=== PATIENT | male | born 1955 | race American Indian/Alaskan Native ===

== ENCOUNTER 2021-10-23 20:48 | Inpatient (IN) | payer OTHER, MEDICARE ==
[2021-10-23] MEDS ORDERED: ACETAMINOPHEN 500 MG TAB PO ONE (22:52)
[2021-10-23] MEDS ORDERED: SODIUM CHLORIDE 0.9% 1000 ML 1,000 ML IV ONE (22:52)
--- NOTE | 2021-10-23 22:58 | Emergency Department Report ---
ED Fever HPI - General Chief Complaint: High BP Stated Complaint: HYPERGLYCEMIA PUI?: Yes Time Seen by Provider: 10/23/21 22:30 Source: patient, family Exam Limitations: physical impairment - History of Present Illness Initial Comments: 66-year-old male with multiple medical comorbidities brought in by EMS at the request of his for evaluation of high blood sugar and high blood pressure as well as fever. Patient's reports that the patient has not been feeling well for the past day. She states she noticed him shaking and not appearing well over the past day. Patient reports burning and pain with urination over the past 4 to 5 days. He denies any abdominal pain, nausea vomiting fevers or chills. He states he is vaccinated against COVID but has not received booster shots. He denies any cough or upper respiratory tract infection symptoms, no chest pain and no shortness of breath. Patient did not receive any antipyretics prior to arrival. Pain currently 0-10. Timing/Duration: just prior to arrival Fever Severity/Quality: subjective Fever Therapy RECOVERY AGENT: none Associated Symptoms: weakness ED Review of Systems ROS: Stated complaint: HYPERGLYCEMIA Other details as noted in HPI Comment: All other systems reviewed and negative Constitutional: chills, diaphoresis, fever, malaise, weakness Eyes: denies: eye pain, eye discharge, vision change ENT: denies: ear pain, throat pain, dental pain, hearing loss, epistaxis Respiratory: no symptoms reported, see HPI Cardiovascular: denies: chest pain, palpitations, dyspnea on exertion, orthopnea, edema, syncope, paroxysmal nocturnal dyspnea, other Endocrine: denies: no symptoms reported Gastrointestinal: denies: abdominal pain, nausea, vomiting, diarrhea, constipation, hematemesis, melena, hematochezia Genitourinary: as per HPI, urgency, dysuria, frequency. denies: hematuria, discharge, testicular pain Musculoskeletal: as per HPI, myalgia. denies: back pain, joint swelling, arthralgia Skin: denies: as per HPI, rash, lesions, change in color, change in hair/nails, pruritus Neurological: denies: as per HPI, headache, weakness, numbness, paresthesias, confusion, abnormal gait, vertigo Psychiatric: denies: anxiety, depression, auditory hallucinations, visual hallucinations, homicidal thoughts Hematological/Lymphatic: denies: easy bleeding, easy bruising, swollen glands, other ED Past Medical Hx - Past Medical History Hx Hypertension: Yes Hx CVA: Yes Additional medical history: HIGH CHOLESTEROL - Family History Family history: no significant - Social History Smoking Status: Unknown if ever smoked Substance Use Type: None - Medications Home Medications: Home Medications Medication Instructions Recorded Confirmed Last Taken Type Aspirin [Aspirin BABY CHEW TAB] 81 mg PO DAILY #30 tab.chew 08/15/13 Unknown Rx Atenolol [Tenormin] 100 mg PO DAILY #30 tablet 08/15/13 Unknown Rx Lisinopril/Hydrochlorothiazide 1 each PO QDAY #30 tablet 08/15/13 Unknown Rx [Zestoretic 10-12.5 mg] Lovastatin [Mevacor] 20 mg PO DAILY #30 tablet 08/15/13 Unknown Rx amLODIPine [Norvasc] 10 mg PO DAILY 08/15/13 08/15/13 Unknown History lisinopriL [Zestril TAB] 10 mg PO DAILY 08/15/13 08/15/13 Unknown History ED Physical Exam - General Limitations: No Limitations General appearance: alert, in no apparent distress - Head Head exam: Present: atraumatic, normocephalic, normal inspection - Eye Eye exam: Present: normal appearance, PERRL, EOMI Pupils: Present: normal accommodation - ENT ENT exam: Present: normal exam, mucous membranes moist, normal external ear exam - Neck Neck exam: Present: normal inspection, full ROM. Absent: tenderness, meningismus, lymphadenopathy, thyromegaly - Respiratory Respiratory exam: Present: normal lung sounds bilaterally, wheezes. Absent: respiratory distress, rales, rhonchi, stridor, chest wall tenderness, accessory muscle use, decreased breath sounds, prolonged expiratory - Cardiovascular Cardiovascular Exam: Present: regular rate, normal rhythm, normal heart sounds - GI/Abdominal GI/Abdominal exam: Present: soft, normal bowel sounds. Absent: hyperactive bowel sounds, hypoactive bowel sounds, organomegaly, mass, bruit, pulsatile mass, hernia - Extremities Exam Extremities exam: Present: normal inspection, full ROM, other (dry skin noted to b/l LE with skin flaking; no sloughing) - Back Exam Back exam: Present: normal inspection, full ROM. Absent: tenderness, CVA tenderness (R), CVA tenderness (L), muscle spasm, paraspinal tenderness, vertebral tenderness, rash noted - Neurological Exam Neurological exam: Present: oriented X3, CN II-XII intact. Absent: motor sensory deficit - Psychiatric Psychiatric exam: Present: normal affect, normal mood. Absent: depressed, anxious, flat affect, manic, homicidal ideation, suicidal ideation - Skin Skin exam: Present: warm, dry, intact, normal color, other (mild localized erythema to bottom of pt's R foot ) ED Course Vital Signs 10/23/21 10/23/21 10/23/21 21:16 21:19 22:48 Temperature 100.7 F H Pulse Rate 95 H 79 Respiratory 16 16 Rate Blood Pressure Blood Pressure 168/56 174/80 [Left] O2 Sat by Pulse 95 99 Oximetry 10/23/21 10/23/21 10/23/21 23:22 23:31 23:45 Temperature Pulse Rate 88 87 Respiratory 19 24 29 H Rate Blood Pressure 164/71 164/71 Blood Pressure [Left] O2 Sat by Pulse 96 97 Oximetry 10/24/21 10/24/21 10/24/21 00:01 00:15 00:31 Temperature Pulse Rate 89 89 89 Respiratory 29 H 28 H 21 Rate Blood Pressure 159/69 159/69 150/80 Blood Pressure [Left] O2 Sat by Pulse 97 91 94 Oximetry 10/24/21 10/24/21 10/24/21 00:45 01:01 01:15 Temperature Pulse Rate 95 H 91 H 88 Respiratory 17 18 16 Rate Blood Pressure 150/80 158/77 158/77 Blood Pressure [Left] O2 Sat by Pulse 96 97 97 Oximetry 10/24/21 10/24/21 10/24/21 01:31 01:45 02:01 Temperature Pulse Rate 85 84 83 Respiratory 27 H 26 H 19 Rate Blood Pressure 152/62 152/62 149/64 Blood Pressure [Left] O2 Sat by Pulse 97 97 95 Oximetry 10/24/21 10/24/21 10/24/21 02:15 02:31 02:45 Temperature Pulse Rate 84 81 79 Respiratory 16 12 25 H Rate Blood Pressure 149/64 157/70 157/70 Blood Pressure [Left] O2 Sat by Pulse 99 98 96 Oximetry 10/24/21 10/24/21 10/24/21 03:00 03:15 03:31 Temperature Pulse Rate 76 81 73 Respiratory 27 H 22 18 Rate Blood Pressure 157/70 153/70 155/74 Blood Pressure [Left] O2 Sat by Pulse 98 98 97 Oximetry 10/24/21 10/24/21 10/24/21 03:45 04:01 04:15 Temperature Pulse Rate 74 75 75 Respiratory 21 25 H 23 Rate Blood Pressure 155/74 155/74 155/74 Blood Pressure [Left] O2 Sat by Pulse 98 100 98 Oximetry 10/24/21 04:31 Temperature Pulse Rate 77 Respiratory 23 Rate Blood Pressure 159/71 Blood Pressure [Left] O2 Sat by Pulse 98 Oximetry ED Medical Decision Making - Lab Data Result diagrams: 10/23/21 23:04 10/23/21 23:04 - Radiology Data Radiology results: report reviewed - Medical Decision Making 66-year-old male with multi medical comorbidities brought in by his for evaluation of fever and burning and pain with urination for the past 3 days. Patient was found today to have sepsis secondary to urinary tract infection. Rocephin and acetaminophen given. Patient has been accepted by to the hospital service for admission and further management. Critical care attestation.: If time is entered above; I have spent that time in minutes in the direct care of this critically ill patient, excluding procedure time. ED Disposition Clinical Impression: UTI (urinary tract infection), Sepsis Disposition: ADMITTED INPATIENT Is pt being admited?: Yes Does the pt Need Aspirin: No Condition: Stable
[2021-10-23 23:25] LABS: Basophils % (Auto) 0.3 % (0.0-1.8); Eosinophils # (Auto) 0.1 K/mm3 (0.0-0.4); Eosinophils % (Auto) 0.8 % (0.0-4.3); Hematocrit 27.1 % (35.5-45.6); Lymphocytes # (Auto) 0.8 K/mm3 (1.2-5.4); Lymphocytes % (Auto) 11.7 % (13.4-35.0); Mean Corpuscular HGB Conc 33 % (32-34); Mean Corpuscular Volume 84 fl (84-94); Monocytes # (Auto) 0.3 K/mm3 (0.0-0.8); Monocytes % (Auto) 4.8 % (0.0-7.3); Platelet Count 189 K/mm3 (140-440); Red Blood Count 3.24 M/mm3 (3.65-5.03); Red Cell Distribution Width 16.5 % (13.2-15.2)
[2021-10-23 23:34] LABS: Albumin 3.5 g/dL (3.9-5); BUN/Creatinine Ratio 10; Blood Urea Nitrogen 11 mg/dL (9-20); Calcium 8.7 mg/dL (8.4-10.2); Hemolysis Index 0
[2021-10-23 23:38] LABS: Alanine Aminotransferase < 5 units/L (7-56)
--- NOTE | 2021-10-24 02:13 | XRay Report ---
CHEST 1 VIEW INDICATION / CLINICAL INFORMATION: fever, weakness. COMPARISON: Chest x-ray 08/15/2013 FINDINGS: SUPPORT DEVICES: None. HEART / MEDIASTINUM: Heart size is within normal limits. Mediastinal contour demonstrates no signific ant abnormality. LUNGS / PLEURA: No significant pulmonary abnormality. BONES: No significant osseous abnormality. ADDITIONAL FINDINGS: No significant additional findings. IMPRESSION: 1. No active cardiopulmonary disease. Signer Name: Raghavendra Mccabe II, MD Signed: 10/24/2021 2:09 AM Workstation Name: [id number]
[2021-10-24 03:15] LABS: Bilirubin,Urine Negative (Negative); Blood,Urine Negative (Negative); Color,Urine Yellow (Yellow); Protein,Urine <15 mg/dL mg/dL (Negative)
[2021-10-24] MEDS ORDERED: cefTRIAXone/NS 1 GM/50 ML 1 GM/50 ML BAG IV ONE (04:13)
[2021-10-24] MEDS ORDERED: MORPHINE 2 MG/1 ML INJ IV PRN (05:42)
[2021-10-24] MEDS ORDERED: ONDANSETRON 4 MG/2 ML INJ IV PRN (05:42)
[2021-10-24] MEDS ORDERED: MAGNESIUM HYDROXIDE (MOM) ORAL LIQD UDC PO PRN (05:42)
[2021-10-24] MEDS ORDERED: MORPHINE 4 MG/1 ML INJ IV PRN (05:42)
[2021-10-24] MEDS ORDERED: ACETAMINOPHEN 325 MG TAB PO PRN (05:42)
--- NOTE | 2021-10-24 05:49 | History and Physical Report ---
History of Present Illness Date of examination: 10/24/21 Date of admission: 10/24/2021 Chief complaint: Fever History of present illness: 66-year-old [place]er male with known history of hyperlipidemia, hypertension and CVA presents to the emergency room via EMS today for evaluation of elevated blood pressure and blood glucose at home. Patient has also been having fever and had noticed that patient was having what appeared to be rigors and therefore called EMS. Patient also indicates that he has been having some dysuria over the past 4 to 5 days. He denies any nausea or vomiting, no chest pain or shortness of breath no headache or dizziness and no diaphoresis. Patient denies any sick contacts and no recent travel. Upon arrival in the emergency room, patient was back to his baseline. Work-up in the emergency room today, lab reveals hemoglobin of 9 and hematocrit of 27.1. Urinalysis reveals UTI. He has been started on IV fluid and empiric IV antibiotics. Past History Past Medical History: hypertension, hyperlipidemia, stroke Past Surgical History: No surgical history Social history: no significant social history Family history: no significant family history Medications and Allergies Allergies Allergy/AdvReac Type Severity Reaction Status Date / Time No Known Allergies Allergy Unverified 08/15/13 02:53 Home Medications Medication Instructions Recorded Confirmed Last Taken Type Aspirin [Aspirin BABY CHEW TAB] 81 mg PO DAILY #30 tab.chew 08/15/13 Unknown Rx Atenolol [Tenormin] 100 mg PO DAILY #30 tablet 08/15/13 Unknown Rx Lisinopril/Hydrochlorothiazide 1 each PO QDAY #30 tablet 08/15/13 Unknown Rx [Zestoretic 10-12.5 mg] Lovastatin [Mevacor] 20 mg PO DAILY #30 tablet 08/15/13 Unknown Rx amLODIPine [Norvasc] 10 mg PO DAILY 08/15/13 08/15/13 Unknown History lisinopriL [Zestril TAB] 10 mg PO DAILY 08/15/13 08/15/13 Unknown History Review of Systems Constitutional: fever, no chills Ears, nose, mouth and throat: no nasal congestion, no sore throat Cardiovascular: no chest pain, no palpitations Respiratory: no cough, no shortness of breath Gastrointestinal: no abdominal pain, no nausea, no vomiting, no diarrhea Genitourinary Male: no dysuria, no hematuria, no flank pain Musculoskeletal: no neck pain, no low back pain Integumentary: no rash, no pruritis Neurological: no headaches, no confusion Psychiatric: no anxiety, no depression Endocrine: no polyphagia, no polydipsia, no polyuria Exam - Constitutional Vitals: Temp Pulse Resp BP Pulse Ox 100.7 F H 77 23 159/71 98 10/23/21 21:19 10/24/21 04:31 10/24/21 04:31 10/24/21 04:31 10/24/21 04:31 General appearance: Present: no acute distress, well-nourished - EENT Eyes: Present: PERRL, EOM intact. Absent: scleral icterus ENT: hearing intact, clear oral mucosa, dentition normal - Neck Neck: Present: supple, normal ROM - Respiratory Respiratory effort: normal Respiratory: bilateral: CTA - Cardiovascular Rhythm: regular Heart Sounds: Present: S1 & S2. Absent: gallop, systolic murmur, diastolic murmur, rub, click - Extremities Extremities: no ischemia, pulses intact, pulses symmetrical, No edema, normal temperature, normal color, Full ROM Peripheral Pulses: within normal limits - Abdominal General gastrointestinal: Present: soft, non-tender, non-distended, normal bowel sounds. Absent: mass - Integumentary Integumentary: Present: clear, warm, dry, normal turgor. Absent: rash - Musculoskeletal Musculoskeletal: strength equal bilaterally - Psychiatric Psychiatric: appropriate mood/affect, intact judgment & insight, memory intact, cooperative - Neurologic Neurologic: CNII-XII intact, no focal deficits, moves all extremities Results - Labs CBC & Chem 7: 10/23/21 23:04 10/23/21 23:04 Labs: Abnormal lab results 10/23/21 10/23/21 10/24/21 Range/Units 23:04 23:04 02:56 RBC 3.24 L (3.65-5.03) M/mm3 Hgb 9.0 L (11.8-15.2) gm/dl Hct 27.1 L (35.5-45.6) % RDW 16.5 H (13.2-15.2) % Lymph % (Auto) 11.7 L (13.4-35.0) % Lymph # (Auto) 0.8 L (1.2-5.4) K/mm3 Seg Neutrophils % 82.4 H (40.0-70.0) % ALT < 5 L (7-56) units/L Albumin 3.5 L (3.9-5) g/dL Urine WBC (Auto) 22.0 H (0.0-6.0) /HPF Assessment and Plan Assessment: 1. UTI 2. Hypertension 3. History of CVA Plan: 1. Patient commenced on IV fluid and empiric IV antibiotics. 2. We will await culture results. 3. We will resume routine home medications once reconciled. DVT Prophylaxis: Subcutaneous heparin Code Status: Full Code.
[2021-10-24] MEDS: cefTRIAXone/NS 1 GM/50 ML 1 GM/50 ML BAG IV SCH (11:07)
[2021-10-24] MEDS: SODIUM CHLORIDE 0.9% 1000 ML 1,000 ML IV SCH ×2 (11:08→23:48)
--- NOTE | 2021-10-24 13:22 | Event Note ---
Date: 10/24/21 Patient seen and examined at bedside. Has history of CVA with residual right- sided weakness. Patient reports right gluteal and leg pain prior to admission, but unable to characterize and pinpoint exactly. He has had no urinary or fecal incontinence, numbness tingling leg, previous back injury. Currently treating for UTI. Urine culture and blood cultures pending. Patient with T-max of 100.7, will continue to monitor.
[2021-10-24] MEDS ORDERED: NON-FORMULARY EACH (Atenolol [Tenormin] 100 MG Tablet) PO SCH (13:30)
[2021-10-24] MEDS: HEPARIN 5,000 UNIT/1 ML VIAL SUB-Q SCH ×2 (13:37→23:45)
--- NOTE | 2021-10-24 15:45 | XRay Report ---
SINGLE VIEW RIGHT HIP SINGLE VIEW RIGHT FEMUR. INDICATION: hip pain. Right hip pain and right thigh pain COMPARISON: No relevant prior imaging study available. FINDINGS: Right hip: There are advanced osteoarthrosis changes at the hips. 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 No acute fracture is seen. Right femur: No acute fracture is seen. Osteoarthrosis changes are noted at the right knee. No soft t issue swelling is identified. IMPRESSION: 1. No acute findings. Signer Name: Miller Roldan MD Signed: 10/24/2021 3:40 PM Workstation Name: [id number]
[2021-10-24] MEDS: LISINOPRIL 10 MG TAB PO SCH (16:29)
[2021-10-24] MEDS: ASPIRIN 81 MG TAB CHEW PO SCH (16:30)
[2021-10-24] MEDS: atenoloL 50 MG TAB PO SCH (16:30)
[2021-10-24] MEDS: amLODIPine 10 MG TAB PO SCH (16:30)
[2021-10-25 05:52] LABS: Basophils % (Auto) 0.4 % (0.0-1.8); Eosinophils % (Auto) 0.5 % (0.0-4.3); Hematocrit 33.5 % (35.5-45.6); Hemoglobin 10.7 gm/dl (11.8-15.2); Lymphocytes # (Auto) 1.1 K/mm3 (1.2-5.4); Lymphocytes % (Auto) 17.4 % (13.4-35.0); Mean Corpuscular HGB Conc 32 % (32-34); Mean Corpuscular Volume 84 fl (84-94); Monocytes # (Auto) 0.3 K/mm3 (0.0-0.8); Monocytes % (Auto) 5.8 % (0.0-7.3); Platelet Count 225 K/mm3 (140-440); Red Blood Count 3.99 M/mm3 (3.65-5.03); Red Cell Distribution Width 16.2 % (13.2-15.2)
[2021-10-25 06:09] LABS: BUN/Creatinine Ratio 12; Blood Urea Nitrogen 14 mg/dL (9-20); Hemolysis Index 1
[2021-10-25] MEDS: HEPARIN 5,000 UNIT/1 ML VIAL SUB-Q SCH ×3 (06:25→21:15)
[2021-10-25] MEDS: atenoloL 50 MG TAB PO SCH (09:32)
[2021-10-25] MEDS: cefTRIAXone/NS 1 GM/50 ML 1 GM/50 ML BAG IV SCH (09:32)
[2021-10-25] MEDS: ASPIRIN 81 MG TAB CHEW PO SCH (09:32)
[2021-10-25] MEDS: amLODIPine 10 MG TAB PO SCH (09:33)
[2021-10-25] MEDS: LISINOPRIL 10 MG TAB PO SCH (09:33)
--- NOTE | 2021-10-25 13:27 | Progress Note ---
Assessment and Plan Assessment and plan: #Sepsis-improving #Acute cystitis without hematuria -Patient currently defervescing, clinical improvement -Chest x-ray negative for acute findings; Coronavirus PCR negative -UA suggestive of cystitis urine culture pending -Continue Rocephin -Blood culture no growth to date x24 hours #Hypertension -Uncontrolled, questionable patient compliance -We will continue amlodipine, atenolol and lisinopril at home doses -Goal SBP less than 160 while inpatient -We will titrate medications as needed #History of CVA -Continue ASA plus statin #Advanced care planning -Disease education conducted, care plan discussed, diagnoses discussed, prognosis discussed, and patient acknowledges understanding with care plan -Time: +30 min History Interval history: No acute events overnight. Patient reports improvement in his symptoms and in right lower extremity pain. He reports having this pain for at least 8 months and has not walked fully for almost 2 years after stroke. Awaiting formal physical therapy consultation. Hospitalist Physical - Physical exam Narrative exam: GENERAL: Well-developed well-nourished. In no acute distress. HEENT: Poor dentition. NECK: Supple. CHEST/LUNGS: CTAB on room air HEART/CARDIOVASCULAR: RRR. No murmur, rubs or gallops appreciated. ABDOMEN: +BS. NT/ND. SKIN: No rashes noted. NEURO: No focal motor deficit. Follows all commands. MUSCULOSKELETAL: Limited range of motion at right lower extremity. No TTP. EXTREMITIES: No cyanosis, clubbing or edema. PSYCH: Cooperative. - Constitutional Vitals: Temp Pulse Resp BP Pulse Ox 98.9 F 64 18 156/55 99 10/25/21 11:42 10/25/21 11:42 10/25/21 11:42 10/25/21 11:42 10/25/21 11:42 General appearance: Present: no acute distress, well-nourished Results - Labs CBC & Chem 7: 10/25/21 05:20 10/25/21 05:20 Labs: Laboratory Last Values WBC 6.0 K/mm3 (4.5-11.0) 10/25/21 05:20 RBC 3.99 M/mm3 (3.65-5.03) 10/25/21 05:20 Hgb 10.7 gm/dl (11.8-15.2) L 10/25/21 05:20 Hct 33.5 % (35.5-45.6) L D 10/25/21 05:20 MCV 84 fl (84-94) 10/25/21 05:20 MCH 27 pg (28-32) L 10/25/21 05:20 MCHC 32 % (32-34) 10/25/21 05:20 RDW 16.2 % (13.2-15.2) H 10/25/21 05:20 Plt Count 225 K/mm3 (140-440) 10/25/21 05:20 Lymph % (Auto) 17.4 % (13.4-35.0) 10/25/21 05:20 [place] % (Auto) 5.8 % (0.0-7.3) 10/25/21 05:20 Eos % (Auto) 0.5 % (0.0-4.3) 10/25/21 05:20 Baso % (Auto) 0.4 % (0.0-1.8) 10/25/21 05:20 Lymph # (Auto) 1.1 K/mm3 (1.2-5.4) L 10/25/21 05:20 [place] # (Auto) 0.3 K/mm3 (0.0-0.8) 10/25/21 05:20 Eos # (Auto) 0.0 K/mm3 (0.0-0.4) 10/25/21 05:20 Baso # (Auto) 0.0 K/mm3 (0.0-0.1) 10/25/21 05:20 Seg Neutrophils % 75.9 % (40.0-70.0) H 10/25/21 05:20 Seg Neutrophils # 4.6 K/mm3 (1.8-7.7) 10/25/21 05:20 Sodium 133 mmol/L (137-145) L 10/25/21 05:20 Potassium 4.0 mmol/L (3.6-5.0) 10/25/21 05:20 Chloride 99.1 mmol/L (98-107) 10/25/21 05:20 Carbon Dioxide 21 mmol/L (22-30) L 10/25/21 05:20 Anion Gap 17 mmol/L 10/25/21 05:20 BUN 14 mg/dL (9-20) 10/25/21 05:20 Creatinine 1.2 mg/dL (0.8-1.3) 10/25/21 05:20 Estimated GFR > 60 ml/min 10/25/21 05:20 BUN/Creatinine Ratio 12 % 10/25/21 05:20 Glucose 87 mg/dL (75-100) 10/25/21 05:20 POC Glucose 87 mg/dL (70-105) 10/25/21 08:18 Lactic Acid 1.70 mmol/L (0.7-2.0) 10/23/21 23:04 Calcium 9.0 mg/dL (8.4-10.2) 10/25/21 05:20 Total Bilirubin 0.50 mg/dL (0.1-1.2) 10/23/21 23:04 AST 14 units/L (5-40) 10/23/21 23:04 ALT < 5 units/L (7-56) L 10/23/21 23:04 Alkaline Phosphatase 72 units/L (35-129) 10/23/21 23:04 NT-Pro-B Natriuret Pep 730.9 pg/mL (0-900) 10/23/21 23:04 Total Protein 6.7 g/dL (6.3-8.2) 10/23/21 23:04 Albumin 3.5 g/dL (3.9-5) L 10/23/21 23:04 Albumin/Globulin Ratio 1.1 % 10/23/21 23:04 Urine Color Yellow (Yellow) 10/24/21 02:56 Urine Turbidity Clear (Clear) 10/24/21 02:56 Urine pH 6.0 (5.0-7.0) 10/24/21 02:56 Ur Specific Davin 1.005 (1.003-1.030) 10/24/21 02:56 Urine Protein <15 mg/dl mg/dL (Negative) 10/24/21 02:56 Urine Glucose (UA) Negative mg/dL (Negative) 10/24/21 02:56 Urine Ketones Negative mg/dL (Negative) 10/24/21 02:56 Urine Blood Negative (Negative) 10/24/21 02:56 Urine Nitrite Negative (Negative) 10/24/21 02:56 Ur Reducing Substances Not Reportable 10/24/21 02:56 Urine Bilirubin Negative (Negative) 10/24/21 02:56 Urine Ictotest Not Reportable 10/24/21 02:56 Urine Urobilinogen 2.0 mg/dL (<2.0) 10/24/21 02:56 Ur Leukocyte Esterase Moderate (Negative) 10/24/21 02:56 Urine WBC (Auto) 22.0 /HPF (0.0-6.0) H 10/24/21 02:56 Urine RBC (Auto) 4.0 /HPF (0.0-6.0) 10/24/21 02:56 U Epithel Cells (Auto) 1.0 /HPF (0-13.0) 10/24/21 02:56 SARS-CoV-2 (PCR) Negative (Negative) 10/25/21 11:00 Microbiology: Microbiology 10/23/21 23:04 Peripheral/Venous Blood Culture - Preliminary NO GROWTH AFTER 24 HOURS 10/23/21 22:59 Peripheral/Venous Blood Culture - Preliminary NO GROWTH AFTER 24 HOURS Munoz/IV: Voiding Method Condom Catheter Active Medications - Current Medications Current Medications: Generic Name Dose Route Start Last Admin Trade Name Freq PRN Reason Stop Dose Admin Acetaminophen 650 mg 10/24/21 05:42 10/24/21 13:35 Acetaminophen 325 Mg Tab PO 650 mg Q4H PRN Administration Pain MILD(1-3)/Fever >100.5/GIRALDO Amlodipine Besylate 10 mg 10/24/21 16:00 10/25/21 09:33 Amlodipine 10 Mg Tab PO 10 mg DAILY SUN Administration Aspirin 81 mg 10/24/21 16:00 10/25/21 09:32 Aspirin 81 Mg Tab Chew PO 81 mg DAILY SUN Administration Atenolol 100 mg 10/24/21 17:00 10/25/21 09:32 Atenolol 50 Mg Tab PO 100 mg QDAY SUN Administration Atorvastatin Calcium 10 mg 10/24/21 22:00 10/24/21 23:45 Atorvastatin 10 Mg Tab PO 10 mg QHS SUN Administration Heparin Sodium (Porcine) 5,000 unit 10/24/21 14:00 10/25/21 06:25 Heparin 5,000 Unit/1 Ml Vial SUB-Q 5,000 unit Q8HR SUN Administration Sodium Chloride 1,000 mls @ 125 mls/hr 10/24/21 05:45 10/24/21 23:48 Nacl 0.9% 1000 Ml IV 125 mls/hr DIRECT SUN Administration Ceftriaxone Sodium 1 gm in 50 mls @ 100 mls/hr 10/24/21 10:00 10/25/21 09:32 Rocephin/Ns 1 Gm/50 Ml IV 100 mls/hr Q24H SUN Administration Protocol Lisinopril 10 mg 10/24/21 16:00 10/25/21 09:33 Lisinopril 10 Mg Tab PO 10 mg DAILY SUN Administration Magnesium Hydroxide 30 ml 10/24/21 05:42 Magnesium Hydroxide (Mom) Oral Liqd Udc PO Q4H PRN Constipation Morphine Sulfate 2 mg 10/24/21 05:42 10/24/21 16:03 Morphine 2 Mg/1 Ml Inj IV 2 mg Q4H PRN Administration Pain, Moderate (4-6) Morphine Sulfate 4 mg 10/24/21 05:42 Morphine 4 Mg/1 Ml Inj IV Q4H PRN Pain , Severe (7-10) Ondansetron HCl 4 mg 10/24/21 05:42 Ondansetron 4 Mg/2 Ml Inj IV Q8H PRN Nausea And Vomiting Sodium Chloride 10 ml 10/24/21 10:00 10/25/21 09:33 Sodium Chloride 0.9% 10 Ml Flush Syringe IV 10 ml BID SUN Administration Sodium Chloride 10 ml 10/24/21 05:42 Sodium Chloride 0.9% 10 Ml Flush Syringe IV PRN PRN LINE FLUSH
[2021-10-25] MEDS: SODIUM CHLORIDE 0.9% 1000 ML 1,000 ML IV SCH (13:39)
[2021-10-26] MEDS: HEPARIN 5,000 UNIT/1 ML VIAL SUB-Q SCH ×2 (06:17→16:37)
[2021-10-26 08:13] LABS: BUN/Creatinine Ratio 18; Blood Urea Nitrogen 16 mg/dL (9-20); Calcium 8.3 mg/dL (8.4-10.2); Hemolysis Index 3
[2021-10-26] MEDS ORDERED: atenoloL 50 MG TAB PO SCH (10:00)
--- NOTE | 2021-10-26 10:24 | Discharge Summary ---
Providers - Providers Date of Admission: 10/24/21 05:42 Date of discharge: 10/26/21 Attending physician: BOSSMAN HOANG MD 10/24/21 13:22 Physical Therapy Evaluation and Treat [CONS] Routine Comment: Reason For Exam: evaluate for gait 10/25/21 13:24 Consult to Case Management [CONS] Routine Services Needed at Discharge: Other Additional Physician Instructions: subacute rehab Primary care physician: JAZ QUICK Hospitalization Reason for admission: Fever, UTI Condition: Stable Hospital course: Patient is a 66-year-old male with history of hyperlipidemia, hypertension and CVA with residual right-sided weakness who presented for evaluation after having fever and rigors. Patient was found to have UTI and started on empiric antibiotics and IV fluids. Patient clinically improved and defervesced. Blood cultures were negative x48 hours at time of discharge. Urine culture was still pending. Patient was evaluated by physical therapy due to limited movement and increasing bedbound status at home. It is recommended the patient to be placed in subacute rehab. Instead patient opted for outpatient physical therapy. Once stable he was discharged home with his fiance. Disposition: 01 HOME / SELF CARE / HOMELESS Final Discharge Diagnosis (Prints w/discharge instructions): Sepsis secondary to acute cystitis without hematuria. Hypertension. History of CVA Time spent for discharge: 35 minutes Core Measure Documentation - Palliative Care Palliative Care/ Comfort Measures: Not Applicable - Core Measures Any of the following diagnoses?: history only Exam - Physical Exam Narrative exam: GENERAL: Well-developed well-nourished. In no acute distress. HEENT: Poor dentition. NECK: Supple. CHEST/LUNGS: CTAB on room air HEART/CARDIOVASCULAR: RRR. No murmur, rubs or gallops appreciated. ABDOMEN: +BS. NT/ND. SKIN: No rashes noted. NEURO: No focal motor deficit. Follows all commands. MUSCULOSKELETAL: Limited range of motion at right lower extremity. No TTP. EXTREMITIES: No cyanosis, clubbing or edema. PSYCH: Cooperative. - Constitutional Vitals: Temp Pulse Resp BP Pulse Ox 98.0 F 48 L 18 121/39 96 10/26/21 09:12 10/26/21 09:12 10/26/21 09:12 10/26/21 09:12 10/26/21 09:12 Plan Care Plan Goals: Please follow-up with your primary care provider. Please finish the antibiotic we have given to treat your bladder infection. The x-ray of your right leg and hip were negative for fractures/broken bones. It did however show arthritis. Ways to improve pain include using Tylenol [id number] for arthritis and movement. Lying still will only make it worse. Your COVID test was negative. Follow up with: JAZ QUICK MD [Primary Care Provider] - 3-5 Days Prescriptions: Ciprofloxacin/Ciprofloxa HCl [Ciprofloxacin ER 500 mg Tablet] 500 mg PO QDAY 3 Days #3 tab atenoloL [Tenormin] 50 mg PO QDAY 30 Days #30 tablet
[2021-10-26] MEDS: amLODIPine 10 MG TAB PO SCH (11:32)
[2021-10-26] MEDS: LISINOPRIL 10 MG TAB PO SCH (11:33)
[2021-10-26] MEDS: cefTRIAXone/NS 1 GM/50 ML 1 GM/50 ML BAG IV SCH (11:34)
[2021-10-26] MEDS: ASPIRIN 81 MG TAB CHEW PO SCH (11:34)
[2021-10-26 16:46] VITALS: BP 122/92
== END 2021-10-26 17:25 | disposition home or self-care (01) | DRG 872 ==
LOC: ED 20:48 → 4A 10-24 05:42
PROVIDERS: ADMIT Internal Medicine Geriatric Medicine; ATTEND Student in an Organized Health Care Education/Training Program
DX: A41.9 Sepsis, unspecified organism (principal); N30.00 Acute cystitis without hematuria; I69.351 Hemiplegia and hemiparesis following cerebral infarction affecting right dominant side; Z20.822 Contact with and (suspected) exposure to COVID-19; I10 Essential (primary) hypertension; E78.00 Pure hypercholesterolemia, unspecified; Z79.82 Long term (current) use of aspirin; Z79.899 Other long term (current) drug therapy
CPT/HCPCS: 36415; 71045; 80048; 80053; 81001; 82140; 82962; 83880; 85025; 87040; 87086; G0378; J0696; J1644; J2270; J7030; U0003